=== PATIENT | female | born 1960 | race Caucasian/White ===

== ENCOUNTER 2018-03-29 18:01 | Emergency (ER) | payer MEDICAID ==
[~2018-03-29] VITALS: Ht 165.1 cm; Wt 71.0 kg
[~2018-03-29 18:01] MED LIST: ASPI-147 PO; BENZ-16 PO; LISI-604 PO
[2018-03-29 18:09] VITALS: BP 133/71
[2018-03-29] MEDS ORDERED: dexamethasone 4mg tablet PO ONE (20:10)
[2018-03-29] MEDS ORDERED: ipratropium/albuterol 3ml nebule NEB ONE (20:10)
[2018-03-29] MEDS ORDERED: ALBU8HFA PO (20:12)
[2018-03-29] MEDS ORDERED: PRED20TA PO (20:12)
[2018-03-29] MEDS ORDERED: DIPH25CA83 PO (20:14)
[2018-03-29] MEDS ORDERED: LORA10TA7 PO (20:14)
== END 2018-03-29 20:42 | disposition home or self-care (01) ==
LOC: ER 18:02
DX: J40 Bronchitis, not specified as acute or chronic (principal); J44.9 Chronic obstructive pulmonary disease, unspecified; F12.10 Cannabis abuse, uncomplicated; Z98.890 Other specified postprocedural states; Z90.49 Acquired absence of other specified parts of digestive tract; Z79.899 Other long term (current) drug therapy; Z79.82 Long term (current) use of aspirin
CPT/HCPCS: 71045; 93005; 94640; 94760; 99284; J8540

== ENCOUNTER 2019-08-30 19:43 | Emergency (ER) | payer MEDICAID ==
[~2019-08-30] VITALS: Ht 162.6 cm; Wt 86.0 kg
[~2019-08-30 19:43] MED LIST changes: +DIPH25CA83 PO; +LORA10TA7 PO
[2019-08-30 19:51] VITALS: BP 125/62
[2019-08-30 20:48] LABS: CLARITY,URINE SLIGHTLY CLOUDY (Clear); COLOR,URINE AMBER (Yellow); GLUCOSE, URINE NEGATIVE (Neg); KETONES,URINE TRACE mg/dl (Neg); LEUKOCYTE ESTERASE ,URINE NEGATIVE (Neg); NITRITES, URINE NEGATIVE (Neg); OCCULT BLOOD,URINE NEGATIVE (Neg); PROTEIN,URINE NEGATIVE (Neg)
[2019-08-30 20:58] LABS: UA COLLECTION TYPE CLN CATCH MIDSTREAM
[2019-08-30 21:00] LABS: BACTERIA,URINE FEW /HPF (Neg); CAL OXALATE CRYSTALS 3+ /HPF (NEGATIVE); MUCUS STRANDS MANY /LPF (Neg); RBC,URINE NONE SEEN /HPF (0-2); SQUAMOUS EPITHELIAL CELL,UR MANY /LPF (FEW); WBC,URINE 0-4 /HPF (0-4)
[2019-08-30] MEDS ORDERED: orphenadrine citrate 60mg/2ml inj. IM ONE (21:15)
[2019-08-30] MEDS ORDERED: ketorolac tromethamine 15mg/ml inj. IM ONE (21:15)
[2019-08-30] MEDS ORDERED: METH-360 PO (21:17)
[2019-08-30] MEDS ORDERED: NAPR-56 PO (21:17)
== END 2019-08-30 21:27 | disposition home or self-care (01) ==
LOC: ER 19:44
DX: M54.5 Low back pain (principal); J44.9 Chronic obstructive pulmonary disease, unspecified; F12.90 Cannabis use, unspecified, uncomplicated; Z90.49 Acquired absence of other specified parts of digestive tract; Z98.890 Other specified postprocedural states; Z79.899 Other long term (current) drug therapy
CPT/HCPCS: 81001; 99283

== ENCOUNTER 2019-10-02 17:51 | Emergency (ER) | payer MEDICAID ==
[~2019-10-02] VITALS: Ht 162.6 cm; Wt 81.8 kg
[~2019-10-02 17:51] MED LIST changes: +METH-360 PO
[2019-10-02 18:21] LABS: BASOPHILS % (AUTO) 0.3 % (0-1); EOSINOPHILS # (AUTO) 0.2 X10'3 (0-0.9); EOSINOPHILS % (AUTO) 5.7 % (0-6); HEMATOCRIT 47.8 % (35.0-45.0); HEMOGLOBIN 16.9 g/dl (12.0-16.0); LYMPHOCYTES # (AUTO) 1.3 X10'3 (1.1-4.8); LYMPHOCYTES % (AUTO) 31.5 % (21-51); MEAN CORPUSCULAR HEMOGLOBIN 31.2 PG (27.0-31.0); MEAN CORPUSCULAR HGB CONC 35.3 g/dL (33.0-36.5); MEAN CORPUSCULAR VOLUME 88.4 FL (78-98); MEAN PLATELET VOLUME 8.2 FL (7.4-10.4); MONOCYTES # (AUTO) 0.5 X10'3 (0-0.9); MONOCYTES % (AUTO) 13.2 % (2-12); NEUTROPHILS % (AUTO) 49.3 % (42-75); PLATELET COUNT 279 X10'3 (140-440); RED BLOOD COUNT 5.41 X10'6 (4.20-5.60); RED CELL DISTRIBUTION WIDTH 13.3 % (11.5-14.5)
[2019-10-02 18:28] LABS: ALANINE AMINOTRANSFERASE 58 U/L (12-78); ALBUMIN 4.5 G/DL (3.4-5.0); ALBUMIN/GLOBULIN RATIO 1.2 (1.1-1.5); ALKALINE PHOSPHATASE 90 IU/L (46-116); ANION GAP 8 (8-16); ASPARTATE AMINO TRANSFERASE 45 U/L (10-37); BILIRUBIN,TOTAL 0.7 MG/DL (0.1-1.0); BLOOD UREA NITROGEN 17 MG/DL (7-18); BUN/CREATININE RATIO 17.3 (6.6-38.0); CALCIUM 9.7 MG/DL (8.5-10.1); CHLORIDE 104 MMOL/L (99-107); CREATININE 0.98 MG/DL (0.40-0.90); GLUCOSE 118 MG/DL (70-104); SODIUM 142 MMOL/L (135-145); TOTAL PROTEIN 8.4 G/DL (6.4-8.2); eGFR 58 ML/MIN
[2019-10-02] MEDS ORDERED: normal saline 1000ML IV soln IV ONE (18:35)
[2019-10-02] MEDS ORDERED: diltiazem 5mg/ml 5ml inj. IV ONE (18:40)
--- NOTE | 2019-10-02 18:49 | NUR ---
JACK OF ALL TRADES AT BEDSIDE IS READING A RATE OF 140-180. ASCULATATED AND PALPATED THE PULSE TO BE BETWEEN 70 AND 90. THE PULSE OX IS READING A RATE OF 70-90 WELL. PT IS MOVING ALL ABOUT IN BED AND HAS A HARD TIME SITTING STILL. SHE IS RAMBLING ABOUT AND CURRENTLY TALKING ON HER CELL PHONE. SPOKE WITH DANAE AGUDELO ABOUT ORDERING A U TOX. HE AGREES AND AN ORDER IS ENTERED. HE IS ALSO AWARE AND AGREES THAT THE JACK OF ALL TRADES IS NOT READING THE RATE CORRECTLY AND THAT THE MONITOR IS POSSIBLE COUNTING THE "T" WAVE THUS DOUBLING THE RATE. HE WOULD LIKE TO GIVE FLUIDS AND CARDIZEM ORDERED.
[2019-10-02 19:27] LABS: URINE AMPHETAMINE SCREEN NEGATIVE (Neg); URINE BARBITUATE SCREEN NEGATIVE (Neg); URINE BENZODIAZEPINES SCREEN NEGATIVE (Neg); URINE CANNABINOID SCREEN POSITIVE (Neg); URINE COCAINE SCREEN NEGATIVE (Neg); URINE METHADONE SCREEN NEGATIVE (Neg); URINE OPIATE SCREEN NEGATIVE (Neg); URINE PHENCYCLIDINE SCREEN NEGATIVE (Neg)
[2019-10-02 19:37] VITALS: BP 150/94
== END 2019-10-02 19:39 | disposition home or self-care (01) ==
LOC: ER 17:51
DX: R00.0 Tachycardia, unspecified (principal); F12.90 Cannabis use, unspecified, uncomplicated; J43.9 Emphysema, unspecified; Z98.890 Other specified postprocedural states; Z79.899 Other long term (current) drug therapy
CPT/HCPCS: 36415; 71045; 80053; 80305; 84484; 85025; 93005; 96374; 99284; J7030; 96361; J3490

== ENCOUNTER 2019-11-02 19:45 | Emergency (ER) | payer MEDICAID ==
[~2019-11-02] VITALS: Ht 162.6 cm; Wt 88.6 kg
[2019-11-02 19:51] VITALS: BP 107/87
[2019-11-03] MEDS ORDERED: CEPH500C5 PO (16:03)
== END 2019-11-02 22:12 | disposition left against medical advice (07) ==
LOC: ER 19:46
DX: R10.9 Unspecified abdominal pain (principal); J44.9 Chronic obstructive pulmonary disease, unspecified; Z53.21 Procedure and treatment not carried out due to patient leaving prior to being seen by health care provider

== ENCOUNTER 2019-11-03 14:24 | Emergency (ER) | payer MEDICAID ==
[~2019-11-03] VITALS: Ht 162.6 cm; Wt 87.0 kg
[2019-11-03] MEDS ORDERED: morphine 4 MG/ML inj SYRINge IV PRN (14:40)
[2019-11-03] MEDS ORDERED: ondansetron/PF 4mg/2ml inj IV ONE (14:40)
[2019-11-03] MEDS ORDERED: normal saline 1000ML IV soln IVB ONE (14:40)
--- NOTE | 2019-11-03 14:59 | NUR ---
labs drawn, patient provided water
[2019-11-03 15:10] LABS: EOSINOPHILS # (AUTO) 0.1 X10'3 (0-0.9); EOSINOPHILS % (AUTO) 2.9 % (0-6); HEMATOCRIT 47.3 % (35.0-45.0); HEMOGLOBIN 16.5 g/dl (12.0-16.0); LYMPHOCYTES # (AUTO) 1.5 X10'3 (1.1-4.8); MEAN CORPUSCULAR HEMOGLOBIN 31.1 PG (27.0-31.0); MEAN CORPUSCULAR HGB CONC 34.8 g/dL (33.0-36.5); MEAN CORPUSCULAR VOLUME 89.4 FL (78-98); MEAN PLATELET VOLUME 7.6 FL (7.4-10.4); MONOCYTES # (AUTO) 0.3 X10'3 (0-0.9); MONOCYTES % (AUTO) 8.3 % (2-12); NEUTROPHILS # (AUTO) 1.8 X10'3 (1.8-7.7); NEUTROPHILS % (AUTO) 46.8 % (42-75); PLATELET COUNT 304 X10'3 (140-440); WHITE BLOOD COUNT 3.7 X10'3 (4.5-11.0)
[2019-11-03 15:20] LABS: URINE HCG NEGATIVE (NEG)
[2019-11-03 15:21] LABS: CLARITY,URINE SLIGHTLY CLOUDY (Clear); COLOR,URINE YELLOW (Yellow); GLUCOSE, URINE NEGATIVE (Neg); KETONES,URINE NEGATIVE (Neg); LEUKOCYTE ESTERASE ,URINE LARGE (Neg); NITRITES, URINE NEGATIVE (Neg); OCCULT BLOOD,URINE NEGATIVE (Neg); PH,URINE 6.5 (4.8-8.0); PROTEIN,URINE NEGATIVE (Neg); UROBILINOGEN,URINE 0.2 E.U/dL (0.2-1.0)
[2019-11-03 15:22] LABS: UA COLLECTION TYPE CLN CATCH MIDSTREAM
--- NOTE | 2019-11-03 15:23 | NUR ---
Pt's IV access to be started upon completion of the bedside US of the abd. Pt is aware of the plan of care at this time.
[2019-11-03 15:24] LABS: ALANINE AMINOTRANSFERASE 71 U/L (12-78); ALBUMIN 4.4 G/DL (3.4-5.0); ALBUMIN/GLOBULIN RATIO 1.3 (1.1-1.5); ALKALINE PHOSPHATASE 80 IU/L (46-116); ANION GAP 7 (8-16); ASPARTATE AMINO TRANSFERASE 42 U/L (10-37); BILIRUBIN,TOTAL 0.8 MG/DL (0.1-1.0); BLOOD UREA NITROGEN 13 MG/DL (7-18); BUN/CREATININE RATIO 14.9 (6.6-38.0); CALCIUM 9.4 MG/DL (8.5-10.1); CHLORIDE 103 MMOL/L (99-107); CREATININE 0.87 MG/DL (0.40-0.90); GLUCOSE 97 MG/DL (70-104); LIPASE 124 U/L (73-393); POTASSIUM 3.8 MMOL/L (3.5-5.1); SODIUM 140 MMOL/L (135-145); TOTAL CARBON DIOXIDE 30.3 MMOL/L (24-32); TOTAL PROTEIN 7.7 G/DL (6.4-8.2); eGFR 67 ML/MIN
[2019-11-03 15:37] LABS: BACTERIA,URINE 2+ /HPF (Neg); MUCUS STRANDS NONE SEEN /LPF (Neg); RBC,URINE NONE SEEN /HPF (0-2); SQUAMOUS EPITHELIAL CELL,UR FEW /LPF (FEW); WBC CLUMPS,URINE FEW /HPF (NEGATIVE); WBC,URINE 30-50 /HPF (0-4)
[2019-11-03] MEDS ORDERED: CEPH500C5 PO (16:03)
[2019-11-03 16:25] VITALS: BP 132/99
== END 2019-11-03 16:28 | disposition home or self-care (01) ==
LOC: ER 14:25
DX: K80.20 Calculus of gallbladder without cholecystitis without obstruction (principal); N39.0 Urinary tract infection, site not specified; J44.9 Chronic obstructive pulmonary disease, unspecified; F12.90 Cannabis use, unspecified, uncomplicated; Z79.899 Other long term (current) drug therapy; Z79.2 Long term (current) use of antibiotics; Z79.82 Long term (current) use of aspirin; Z87.19 Personal history of other diseases of the digestive system; Z90.49 Acquired absence of other specified parts of digestive tract; Z98.890 Other specified postprocedural states
CPT/HCPCS: 36415; 76700; 80053; 81001; 81025; 83690; 85025; 87077; 87088; 87186; 96374; 99284; J2405; J7030

== ENCOUNTER 2021-02-09 20:47 | Emergency (ER) | payer MEDICAID ==
[~2021-02-09 20:47] MED LIST changes: -LISI-604 PO; +LISI-790 PO
[2021-02-09 20:58] VITALS: BP 122/77
== END 2021-02-09 22:12 | disposition home or self-care (01) ==
LOC: ER 20:48
DX: G89.29 Other chronic pain (principal); M25.572 Pain in left ankle and joints of left foot; J43.9 Emphysema, unspecified; F12.90 Cannabis use, unspecified, uncomplicated; Z90.89 Acquired absence of other organs; Z98.890 Other specified postprocedural states; Z79.899 Other long term (current) drug therapy
CPT/HCPCS: 73610; 73630; 99284

== ENCOUNTER 2021-03-25 23:21 | Emergency (ER) | payer MEDICAID ==
[~2021-03-25] VITALS: Ht 160 cm; Wt 81.0 kg
[2021-03-25 23:30] VITALS: BP 137/87
== END 2021-03-26 00:35 | disposition home or self-care (01) ==
LOC: ER 23:22
DX: M25.511 Pain in right shoulder (principal); J43.9 Emphysema, unspecified; F12.90 Cannabis use, unspecified, uncomplicated; Z90.89 Acquired absence of other organs; Z98.890 Other specified postprocedural states; Z79.899 Other long term (current) drug therapy
CPT/HCPCS: 73030; 99284

== ENCOUNTER 2022-01-06 15:23 | Emergency (ER) | payer MEDICAID ==
[~2022-01-06] VITALS: Ht 162.6 cm; Wt 78.2 kg
[~2022-01-06 15:23] MED LIST changes: -LISI-790 PO; +LISI5TAB22 PO
[2022-01-06 15:40] VITALS: BP 145/91
== END 2022-01-06 16:48 | disposition home or self-care (01) ==
LOC: ER 15:24
DX: S92.415A Nondisplaced fracture of proximal phalanx of left great toe, initial encounter for closed fracture (principal); M79.642 Pain in left hand; J43.9 Emphysema, unspecified; F12.90 Cannabis use, unspecified, uncomplicated; Z90.89 Acquired absence of other organs; Z98.890 Other specified postprocedural states; Z79.899 Other long term (current) drug therapy; X58.XXXA Exposure to other specified factors, initial encounter; Y93.89 Activity, other specified; Y92.89 Other specified places as the place of occurrence of the external cause; Y99.8 Other external cause status
CPT/HCPCS: 73630; 99283

== ENCOUNTER 2022-01-24 19:54 | Emergency (ER) | payer MEDICAID ==
[~2022-01-24] VITALS: Ht 162.6 cm; Wt 79.9 kg
[2022-01-24 20:02] VITALS: BP 140/101
== END 2022-01-24 21:10 | disposition home or self-care (01) ==
LOC: ER 19:55
DX: M79.89 Other specified soft tissue disorders (principal); M10.9 Gout, unspecified; F12.90 Cannabis use, unspecified, uncomplicated; J43.9 Emphysema, unspecified; Z87.81 Personal history of (healed) traumatic fracture; Z90.49 Acquired absence of other specified parts of digestive tract; Z98.890 Other specified postprocedural states; Z79.899 Other long term (current) drug therapy; Z79.82 Long term (current) use of aspirin
CPT/HCPCS: 99284